=== PATIENT | male | born 1960 | race Caucasian/White ===

== ENCOUNTER 2023-08-30 09:32 | Emergency (ER) | payer OTHER, SELFPAY ==
[2023-08-30] VITALS (51 sets, daily range): BP systolic 154–166; BP diastolic 10–113; PULSE 53–87; RESP 11–25; TEMP 36.8–37.2; O2SAT 94–100; BMI 27.3
--- NOTE | 2023-08-30 09:39 | ED.GENADUL1 ---
HPI - General Adult General Chief complaint: Chest Pain Stated complaint: CARDIAC SYMPTOMS Time Seen by Provider: 08/30/23 09:38 History of Present Illness HPI narrative: Patient is a 63-year-old male who is presenting to the Emergency Room today with chief complaint of chest pain. Patient's been having chest pain for the last 3 days. Patient presented to the PCP office today to see Dr. Mayorga and patient was sent to the Emergency Room for evaluation. It was noted the patient was hypertensive and bradycardic in the office, uncertain if more than one set of vital signs were done. Patient told Dr. Mayorga over the past 5 days she's had 3 different episodes of upper chest pain that feels tight and going down into his left arm and into his jaw. Episodes last approximately 30 minutes and then will subside. Patient does take [place] as needed for pain, use a TENS unit, takes Toprol-XL 50 mg once today, also a sleeping pill. Patient's only past medical history is hypertension. Patient works in the [employer]. Patient will go lengthy distances sitting down without moving much, anywhere from 12-14 hours. Patient smokes one pack of cigarettes in 2 days, no cocaine or illicit drug use. Patient's mother had a three-vessel bypass in her 70s, no other family history. Patient takes medication for chronic pain along with blood pressure medication. Patient's done no heavy lifting, twisting or turning recently. Patient states the pain will start into the bilateral anterior neck and jaw, then radiated to his left chest and down his left arm. No rash. . All systems are negative except as noted/marked. All systems reviewed and otherwise negative. . Nurses note and vital signs reviewed and patient is not hypoxic. General: The patient appears well and in no apparent distress. Patient is resting comfortably on cart. Patient is not toxic, lethargic, or listless Skin: Warm, dry, no pallor noted. There is no rash noted. No petechiae, purpura. Head: Normocephalic, atraumatic Eye: Normal conjunctiva, no drainage, EOMI. PERRL Ears, Nose, Mouth, and Throat: oral mucosa is moist. Nares patent. Mouth without vesicles. Cardiovascular: Regular Rate and Rhythm, no murmur, gallop, rub; No reproducible tenderness to palpation to bilateral anterior, lateral, posterior chest wall. Respiratory: Patient is in no distress, no accessory muscle use, lungs are clear to auscultation, no wheezing, rales or rhonchi Back: non-tender, no CVA tenderness bilaterally to percussion. No CT LS midline pain GI: soft, no tenderness to palpation, no masses appreciated. No rebound, guarding, or rigidity noted. No flank pain bilateral, No distention Musculoskeletal: Patient has full range of motion of all of the extremities, no motor, sensory, or focal neurological deficits Neurological: A&O x3, normal speech Psychiatric: Cooperative Related Data Home Medications Medication Instructions Recorded Confirmed hydrocodone 10 mg-acetaminophen 1 tab PO Q4H PRN pain 08/30/23 08/30/23 325 mg tablet metoprolol succinate 50 mg 50 mg PO Q24H 08/30/23 08/30/23 tablet,extended release 24 hr zolpidem 12.5 mg tablet,extended 12.5 mg PO Q24H 08/30/23 08/30/23 release,multiphase Allergies Allergy/AdvReac Type Severity Reaction Status Date / Time No Known Drug Allergies Allergy Verified 08/30/23 09:36 PFSH PFSH Social History Smoking status: Current every day smoker Exam Constitutional Vital Signs, click to edit/add: Last Vital Signs Temp 98.9 F 08/30/23 16:52 Pulse 61 08/30/23 16:52 Resp 14 08/30/23 16:52 BP 165/10 H 08/30/23 16:52 Pulse Ox 98 08/30/23 16:52 O2 Del Method Nasal Cannula 08/30/23 16:52 O2 Flow Rate 2 08/30/23 16:52 Course Vital Signs Vital signs: Vital Signs Temperature 98.2 F 08/30/23 09:36 Pulse Rate 64 08/30/23 09:36 Respiratory Rate 18 08/30/23 09:36 Blood Pressure 166/94 H 08/30/23 09:36 Pulse Oximetry 98 08/30/23 09:36 Temperature 98.9 F 08/30/23 16:52 Pulse Rate 61 08/30/23 16:52 Respiratory Rate 14 08/30/23 16:52 Blood Pressure 165/10 H 08/30/23 16:52 Pulse Oximetry 98 08/30/23 16:52 Oxygen Delivery Method Nasal Cannula 08/30/23 16:52 Oxygen Delivery Flow Rate 2 08/30/23 16:52 Medical Decision Making MDM Narrative Medical decision making narrative: 1120 [address] started speaking [address] Dr. Dill, nursing center tutor at [facility]. He is aware of elevated troponin, patient has been pain-free today. LAST time patient had pain was last evening before bedtime. A picture of the EKG was reviewed by Dr. Dill. Patient recommended a heparin drip. No other medications were recommended. Patient did received 2 aspirin. Since patient has been pain-free today, patient will most likely be going to the cardiac catheter lab tomorrow. At approx 1223 talking to him, there 15 patient's waiting for beds at [facility], this patient was #16 patient waiting for a bed. 1330 Dr. Dill is aware the patient being transferred, is aware of the difficult to transfer secondary to no bed availability at [facility] at this time. He is helping out with transfer, waiting to hear any other updates at this time. Patient's 1st troponin was 298, troponin has slightly risen with a 2nd troponin 334. 1420 A 3rd Troponin will be checked. Patient has chronic pain, takes daily pain medication narcotics 3-4 times a day. This is for chronic back pain, a tablet of [place] 10 mg was ordered for him which she normally takes at home. 1435 Patient 2 sons at bedside have been updated. I just spoke to the Eli, nursing supervisor nut processing at [facility]. Patient is currently on a heparin drip. We are currently waiting for a bed on the progressive unit at [facility]. Dr. Dill is aware of the delays as well. [address] Ferris, Hospitalist for [facility]. He is accepting of patient's admission, Dr. Dill will be in consultation. Patient had lunch and dinner no difficulties. Patient has not had a return of his chest pain or shortness of breath today, but patient has also been laying in bed all day and not exerting himself. Patient is on a heparin drip, patient's 3rd troponin is slightly improved. Patient will be admitted for chest pain, rule out acute for any syndrome, and will most likely have a cardiac catheter tomorrow by Dr. Dill. Dr. Dill was very helpful with patient's care today. Critical care time 55 minutes exclusive from separate billable procedures that were performed. The following was considered in the determination of critical care but not limited to the level of medical decision making, intensive cardiac and/or respiratory monitoring, frequent vital sign monitoring, evaluation of laboratory studies, evaluation of radiographic studies, oxygen monitoring, and constant monitoring and speaking to family at bedside Lab Data Lab results reviewed: Yes I reviewed the patient's lab results Labs: Lab Results 08/30/23 08/30/23 08/30/23 Range/Units 09:45 11:04 14:20 WBC 7.9 (4.0-11.0) 10^3/uL RBC 4.66 L (4.70-6.10) 10^6/uL Hgb 14.3 (14.0-18.0) g/dL Hct 42.8 (42.0-54.0) % MCV 91.8 (80.0-94.0) fL MCH 30.7 (25.9-34.0) pg MCHC 33.4 (29.9-35.2) g/dL RDW 13.3 (11.0-15.0) % Plt Count 294 (150-450) 10^3/uL MPV 8.9 L (9.5-13.5) fL Neut % (Auto) 68.7 (43.0-75.0) % Lymph % (Auto) 21.4 (20.5-60.0) % [place] % (Auto) 7.0 (1.7-12.0) % Eos % (Auto) 1.9 (0.9-7.0) % Baso % (Auto) 0.6 (0.2-2.0) % Neut # (Auto) 5.4 (1.4-6.5) 10^3/uL Lymph # (Auto) 1.7 (1.2-3.8) 10^3/uL [place] # (Auto) 0.6 (0.3-0.8) 10^3/uL Eos # (Auto) 0.2 (0.0-0.7) 10^3/uL Baso # (Auto) 0.1 (0.0-0.1) 10^3/uL Abs Immat Gran (auto) 0.03 (0.00-0.03) 10^3/uL Imm/Tot Granulo (auto) 0.4 (0.0-0.5) % PT 10.0 (9.0-11.6) sec INR 0.94 APTT 28.4 (22.3-36.2) sec D-Dimer 0.32 (<=0.59) mg/L FEU Sodium 137 (136-145) mmol/L Potassium 4.1 (3.5-5.1) mmol/L Chloride 102 (98-107) mmol/L Carbon Dioxide 26.0 (21.0-32.0) mmol/L Anion Gap 13.1 BUN 12.0 (7.0-18.0) mg/dL Creatinine 1.09 (0.70-1.30) mg/dL Est GFR ( Amer) >60 (>=60) Est GFR (Non-Af Amer) >60 (>=60) BUN/Creatinine Ratio 11.0 Glucose 113 H (74-106) mg/dL Calcium 9.9 (8.5-10.1) mg/dL Total Bilirubin 0.5 (0.2-1.0) mg/dL AST 19 (15-37) U/L ALT 37 (16-63) U/L Alkaline Phosphatase 67 (46-116) U/L Troponin I High Sens 298.9 H* 334.9 H* 261.0 H* (4.0-76.1) pg/mL NT-Pro-B Natriuret Pep 939.0 H (<=900.0) pg/mL Total Protein 7.9 (6.4-8.2) g/dL Albumin 3.8 (3.4-5.0) g/dL Globulin 4.1 g/dL Albumin/Globulin Ratio 0.9 ECG Data Attestation: I personally reviewed and interpreted this ECG as follows: (EKG interpretation. Normal sinus rhythm at 58 beats a minute. Normal axis deviation. No acute ST elevation, no acute ectopy. QTC of 412.) Discharge Plan Discharge Chief Complaint: Chest Pain Clinical Impression: Non-ST elevation [place] (NSTEMI), Chest pain, Tobacco abuse Patient Disposition: [facility] Time of Disposition Decision: 11:30 Discharge Location: [facility] Discharge location: [facility], Dr Ferris Condition: Serious
--- NOTE | 2023-08-30 09:41 | XR_ITS ---
The [address] [address] Patient Name: CLEMENTE GAMBLE MRN: [id number] date: 1960 Sex: M Assigned Patient Location: ER Current Patient Location: ER Accession/Order Number: [id number] Exam Date: 08/30/2023 09:58 Report Date: 08/30/2023 10:09 At the request of: ANA MARIA SHEPARD Procedure: XR chest 2V EXAMINATION: XR chest 2V HISTORY: cp COMPARISON: No relevant comparison available. TECHNIQUE: PA and lateral FINDINGS: LUNGS: No significant pulmonary parenchymal abnormalities. VASCULATURE: No increased pulmonary vasculature. PLEURA: No pneumothorax, effusion, or pleural thickening. CARDIAC: No cardiomegaly or cardiac silhouette abnormality. MEDIASTINUM: No visible mass or adenopathy. BONES: No fracture or visible bone lesion. OTHER: Large hiatal hernia XR/XR chest 2V IMPRESSION: Large hiatal hernia Clear lungs Electronically authenticated by: CARLOS OSUNA Date: 08/30/2023 10:09
--- NOTE | 2023-08-30 09:41 | ECG_ITS ---
The [facility] Test Date: 2023-08-30 Pat Name: Junior Johnson Department: Room: - Gender: Male Benzol Operator: : 1960 Requested By: NATHALY MONAE Order Number: [id number] Reading MD: ELDER COE Measurements Intervals [place] Rate: 58 P: 19 VT: 158 QRS: -14 QRSD: 94 T: 17 QT: 416 QTc: 412 Interpretive Statements 1100 Sinus rhythm 9110 normal ECG Electronically Signed On 08-31-2023 6:44:23 EST by ELDER COE
[2023-08-30] MEDS: ASPIRIN 81 MG TAB.CHEW 162 MG PO (09:50)
[2023-08-30 10:06] LABS: Basophils Absolute Auto 0.1 10^3/uL (0.0-0.1); Basophils Percent Auto 0.6 % (0.2-2.0); Eosinophils Absolute Auto 0.2 10^3/uL (0.0-0.7); Eosinophils Percent Auto 1.9 % (0.9-7.0); Hematocrit 42.8 % (42.0-54.0); Hemoglobin 14.3 g/dL (14.0-18.0); Immature Granulocytes Abs Auto 0.03 10^3/uL (0.00-0.03); Immature Granulocytes Pct Auto 0.4 % (0.0-0.5); Lymphocytes Absolute Auto 1.7 10^3/uL (1.2-3.8); Lymphocytes Percent Auto 21.4 % (20.5-60.0); Mean Corpuscular HGB Conc 33.4 g/dL (29.9-35.2); Mean Corpuscular Hemoglobin 30.7 pg (25.9-34.0); Mean Corpuscular Volume 91.8 fL (80.0-94.0); Mean Platelet Volume 8.9 fL (9.5-13.5); Monocytes Absolute Auto 0.6 10^3/uL (0.3-0.8); Neutrophils Absolute Auto 5.4 10^3/uL (1.4-6.5); Neutrophils Percent Auto 68.7 % (43.0-75.0); Platelet Count 294 10^3/uL (150-450); Red Blood Count 4.66 10^6/uL (4.70-6.10); Red Cell Distribution Width 13.3 % (11.0-15.0); White Blood Count 7.9 10^3/uL (4.0-11.0)
[2023-08-30 10:14] LABS: Alanine Aminotransferase 37 U/L (16-63); Albumin Globulin Ratio 0.9; Albumin Level 3.8 g/dL (3.4-5.0); Alkaline Phosphatase 67 U/L (46-116); Anion Gap 13.1; Aspartate Amino Transferase 19 U/L (15-37); Bilirubin Total 0.5 mg/dL (0.2-1.0); Calcium 9.9 mg/dL (8.5-10.1); Chloride 102 mmol/L (98-107); Estimated GFR (African America >60 (>=60); Estimated GFR (Non-African Ame >60 (>=60); Globulin 4.1 g/dL; Glucose 113 mg/dL (74-106); Potassium 4.1 mmol/L (3.5-5.1); Sodium 137 mmol/L (136-145); Total Protein 7.9 g/dL (6.4-8.2)
[2023-08-30 10:16] LABS: Troponin I High Sensitivity 298.9 pg/mL (4.0-76.1)
[2023-08-30 10:22] LABS: D Dimer 0.32 mg/L FEU (<=0.59)
[2023-08-30 12:10] LABS: Troponin I High Sensitivity 334.9 pg/mL (4.0-76.1)
[2023-08-30] MEDS: HEPARIN SODIUM,PORCINE/D5W 25,000 UNIT/500 ML IV.SOLN 20 UNIT IV (12:57)
[2023-08-30 13:03] LABS: INR 0.94; Partial Thromboplastin Time 28.4 sec (22.3-36.2)
[2023-08-30] MEDS: HYDROCODONE/ACET 10-325 MG TABLET 1 TAB PO (13:59)
[2023-08-30 19:30] LABS: Partial Thromboplastin Time 30.7 sec (22.3-36.2)
== END 2023-08-30 19:05 | disposition short-term general hospital (02) ==
PROVIDERS: Emergency Provider Emergency Medicine; PCP Family Medicine
DX: I21.4 Non-ST elevation (NSTEMI) myocardial infarction (principal); R07.9 Chest pain, unspecified; I10 Essential (primary) hypertension; F17.210 Nicotine dependence, cigarettes, uncomplicated; Z79.899 Other long term (current) drug therapy
CPT/HCPCS: 36415; 71046; 80053; 83880; 84484; 85025; 85378; 85610; 85730; 93005; 96374; 99285; J1644